=== PATIENT | female | born 1935 | race Caucasian/White ===

== ENCOUNTER → 2016-06-01 | Outpatient (CLI) | payer MEDICARE, OTHER ==
[~2016-06-01] MED LIST: ADVAIR 250-501 EACH IH; ALBUTEROL17 GM INH; AMITRYPTYLINE PO; AUGMENTIN875 M1 PO; BENTYL10 M1 PO; CALCIUM + D 6001 TA1 PO; CALCIUM CITRATE1 T12 PO; CARAFATE1 G PO; CARDIZEM30 M1 PO; CORGARD PO; CORGARD40 MG PO; COUMADIN PO; COUMADIN1 MG PO; COUMADIN2.5 MG PO; COUMADIN5 MG PO; CRESTOR PO; CRESTOR10 MG PO; CVS PHARMACY; DICYCLOMINE HCL20 MG PO; FOLIC ACID1 MG PO; HYDROCODON-ACE1 EAC5 PO; IMODIUM2 MG PO; IPRATR-ALBUTEROL3 ML NEB; LISINOPRIL2.5 MG PO; LORCET 10/650 T1 TAB PO; MECLIZINE HCL12.5 M2 PO; METFORMIN HCL500 M1 PO; METHOTREXATE2.5 MG PO; MIDODRINE HCL2.5 MG PO; MIRALAX17 G2 PO; MULTI-VITAMIN1 EAC1 PO; MULTIVITAMINS1 EAC3 PO; MYRBETRIQ25 MG PO; NEURONTIN PO; NEURONTIN600 MG PO; NORCO 10-325 TA1 TAB PO; NORCO 10/3251 TAB PO; OS-CAL 500 + D500 MG PO; PATIENT'S PHARMACY; PHAZYME; PHAZYME PO; PREDNISONE1 MG; PREDNISONE1 MG PO; PREDNISONE10 MG PO; PROTONIX PO; REMERON15 MG PO; SECURA PROTECTI50 GM TOP; SINGULAIR PO; SPIRIVA18 MCG INH; SYMBICORT 160/4.6 GM INH; VIT E PO; ZOCOR PO; ZOCOR20 MG PO; ZOFRAN PO; ZOLOFT PO; ZOVIRAX800 MG PO; ZYRTEC PO
--- NOTE | ~2016-06-01 | CT107 ---
STS. [facility] A Service of [facility] RADIOLOGY TEXT RESULTS PATIENT: KAELA BALDERRAMA LOCATION: [facility] : 34 UNIT #: [id number] AGE: [address]: Lucho Min PA-C SEX: F ORDER DR: [id number] [address] [address] [id number] MR#: [id number] Acc #: [id number] NAME: KAELA BALDERRAMA : 1935 SEX: F STUDY DATE/TIME: 06/01/2016 15:21 UNIT: [facility] ROOM: STUDY DESCRIPTION: CT Pelvis Wo Cont Attending Physician: Lucho Min P.A.-C. Referring Physician: Lucho Min P.A.-C. Ordering Physician: Lucho Min P.A.-C. Primary Care Physician: Shirlene Rahman A.P.R.N. MEDICAL IMAGING REPORT This report is preliminary unless electronic signature is present. EXAM CT pelvis without contrast, 06/01/2016 HISTORY 81-year-old female fell at home 3 days ago. Posterior right-sided pelvic pain x3 days. Concern for possible sacral alar fracture. COMPARISON CT abdomen and pelvis 01/24/2016 TECHNIQUE Thin section axial images performed through the pelvis. Multiplanar reconstructed images reviewed at a workstation. This CT exam was performed with one or more of the following radiation dose reduction techniques: automatic exposure control, adjustment of mA and/or kV according to patient size, and iterative reconstruction. FINDINGS Postsurgical change is noted in the noted in the lower lumbar spine from L3 to L5, posterior spinal fusion procedure. Intact instrumentation. Extensive bilateral L5-S1 facet arthropathy. Generalized osteopenia. Minimal arthritic changes of the SI joints. No evidence of an occult pelvic fracture. In particular the sacral ala appear intact without evidence of a stress or insufficiency fracture. Hip joints demonstrate some arthritic changes within both hips, right greater than left with asymmetric joint space loss in the right hip. There is a small right hip effusion. Large amount of colonic stool may indicate constipation. There is a left lower quadrant ostomy site with a peristomal hernia containing small bowel loops and omentum. Extensive aortic and iliac atherosclerotic change is ST[facility]. [facility] A Service of [facility] RADIOLOGY TEXT RESULTS PATIENT: KAELA BALDERRAMA LOCATION: [facility] : 34 UNIT #: [id number] AGE: [address]: Lucho Min PA-C SEX: F ORDER DR: identified. Partially visualized is an infrarenal abdominal aortic aneurysm measuring 5.1 cm x 4.9 cm. This is not significantly changed when compared to the patient's prior CT of January 2016. Bladder unremarkable. Uterus absent. Multiple surgical clips are noted within the pelvis. Gluteal soft tissues demonstrates calcifications compatible with area of fat necrosis. Pelvic and proximal thigh musculature unremarkable. IMPRESSION 1. No CT findings to suggest an occult pelvic fracture. In particular no evidence of a sacral alar insufficiency fracture. 2. Extensive postsurgical changes lower lumbar spine with advanced bilateral L5-S1 facet arthropathy. 3. Osteoarthritic changes both hips right greater than left. 4. As stable 5.1 cm infrarenal abdominal aortic aneurysm, no change from January 2016. 5. Left lower quadrant ostomy with a peristomal hernia. 6. Moderate amount of colonic stool suggests constipation. Dictated by... Mookie Richmond M.D. THIS IS AN ELECTRONICALLY VERIFIED REPORT Mookie Richmond M.D. at 06/02/2016 5:10 PM OUMOU/valeria TD: 06/02/2016 04:25 JOB #: [id number] MEDICAL IMAGING REPORT
== END | disposition home or self-care (01) ==
LOC: SCT 15:16
DX: S32.9XXA Fracture of unspecified parts of lumbosacral spine and pelvis, initial encounter for closed fracture (principal); M46.97 Unspecified inflammatory spondylopathy, lumbosacral region; I71.4 Abdominal aortic aneurysm, without rupture; K46.9 Unspecified abdominal hernia without obstruction or gangrene; Z98.890 Other specified postprocedural states
CPT/HCPCS: 72192

== ENCOUNTER 2016-09-07 19:24 | Inpatient (IN) | payer MEDICARE, OTHER ==
--- NOTE | ~2016-09-07 | CO ---
Unit #: [id number] #: [id number] Patient: KAELA LAMAS [id number] [facility]. [place], [place] [address] [id number] I MR#: [id number] NAME: KAELA LAMAS ROOM: 302 Age: 81 Sex: F Admission Date: 09/09/2016 : 1935 Attending Physician: Keira Jones M.D. Primary Care Physician: Shirlene Rahman A.P.R.N. CONSULTATION REPORT HISTORY OF PRESENT ILLNESS Ms. Lamas is an 81-year-old white female, followed through Dr. Cardenas's office. We were asked to see for chronic respiratory failure. She apparently has a history of COPD, atrial fibrillation, rheumatoid arthritis and chronic osteoarthritis, gastroesophageal reflux, hypertension. She apparently felt weak and could not walk. She also had some abnormal labs and was sent to the emergency room. I think that she supposed to had a hemoglobin of just between 3 and 4. On arrival to the emergency room, her chest x-ray showed some cardiomegaly, no acute infiltrate mass or congestion. CT scan of the abdomen and pelvis revealed an abdominal aortic aneurysm, which had increased in size to 5.5 cm. There was also an area of abnormality could represent some leakage of the aneurysm, which was slightly increased from before. Final report is pending. Her BMP was remarkable for glucose of 166, sodium of 131, BNP of 525, normal TSH. PT/INR was 3.2, and now 2.2 this morning. White count was 4900, hematocrit was 31.4, and platelet count was normal. PAST MEDICAL HISTORY Atrial fibrillation, on anticoagulation with Coumadin; hyperlipidemia; chronic pain, rheumatoid/osteoarthritis; peripheral vascular disease; abdominal aortic aneurysm; hypertension; COPD; colon cancer, status post colostomy; GERD; and history of breast cancer. HOME MEDICATIONS Myrbetriq, amitriptyline, folic acid, hydrocodone, APAP, Protonix, prednisone, Coumadin, Crestor, Remeron, multivitamins, Coreg, and methotrexate. ALLERGIES Listed include propoxyphene, pentazocine, and gatifloxacin. SOCIAL HISTORY Lives at home with . Started smoking at age 20, currently denies smoking. No history of alcohol or drug abuse. PAST SURGICAL HISTORY History of colostomy, vascular surgery by Dr. Singh in [place], hysterectomy, cholecystectomy, bilateral knee replacements. REVIEW OF SYSTEMS No shortness of breath, cough, or purulent sputum. No chest pain. Otherwise negative other than in the HPI. PHYSICAL EXAMINATION Unit #: [id number] #: [id number] Patient: KAELA LAMAS GENERAL: White female, in no distress. VITAL SIGNS: Blood pressure is 116/59, pulse 82, respiratory rate 16, afebrile. HEENT: Normocephalic and atraumatic. Pupils are equal, round, and reactive. Sclerae nonicteric. Nasal passages patent. Posterior pharynx clear. Mucous membranes moist. NECK: Supple. Trachea midline. LUNGS: Reveal decreased breath sounds relatively clear, may be a few crackles in the bases. CARDIAC: Irregular rate and rhythm. Could not appreciate murmur, rub, or gallop. ABDOMEN: Nontender. Bowel sounds present. No hepatosplenomegaly. EXTREMITIES: Without clubbing, cyanosis, or edema. NEUROLOGIC: Awake and oriented x3. Cranial nerves grossly intact. Muscle strength symmetric bilaterally. Affect calm. DIAGNOSTIC STUDIES LABORATORY RESULTS: As noted. IMPRESSION 1. Orthostasis/weakness. 2. History of chronic obstructive pulmonary disease. Currently not on any medications. 3. Atrial fibrillation. 4. Rheumatoid and osteoarthritis with chronic pain. RECOMMENDATIONS Currently, her oxygen saturations are normal both at rest and with sleep. Currently, no indication for home oxygen. She does not admit to any shortness of breath. I do not know the severity of underlying lung disease, but she is currently asymptomatic and has stopped all medications. We can obtain some outpatient pulmonary function test to determine severity of the lung disease and add medications as needed, but right now she seems fairly asymptomatic from our standpoint. We will be happy to follow as an outpatient if needed. Dictated by... Geoffrey England M.D. CHIDI/nhan TD: 09/09/2016 22:32 JOB #: [id number] CONSULTATION REPORT Page 1 of 1 X Geoffrey England MD CONSULTATION REPORT
--- NOTE | ~2016-09-07 | HP ---
Unit #: [id number] #: [id number] Patient: KAELA LAMAS [id number] [facility] [place], [place] [address] [id number] I MR#: [id number] NAME: KAELA LAMAS ROOM: 302 Age: 81 Sex: F Admission Date: 09/07/2016 : 1935 Attending Physician: Keira Jones M.D. Primary Care Physician: Shirlene Rahman A.P.R.N. HISTORY AND PHYSICAL ADMISSION DIAGNOSES 1. Questionable severe anemia. 2. Shortness of air, dyspnea. 3. History of chronic respiratory failure. 4. History of paroxysmal atrial fibrillation. 5. History of peripheral vascular disease. 6. History of chronic pain. 7. Dyslipidemia. 8. History of colon cancer status post resection with colostomy. 9. History of breast cancer. 10. History of rheumatoid arthritis. 11. Elevated INR. 12. UTI. HISTORY OF PRESENT ILLNESS Ms. Lamas is an 81-year-old female, a patient of Dr. Cardenas, who lives at home with her and is followed by [facility]. Apparently she had labs drawn on the regular followup at home and later was informed that her hemoglobin was 6.3 and needed to come to the emergency room. She was brought to the emergency room with complaints of shortness of air and dyspnea. She does have a history of chronic respiratory failure. Initial evaluation in the ER found her with hemoglobin of 10. This morning her hemoglobin is 9. She looks pale, but the patient and her , who is at the bedside, deny any bloody stools, The patient does have a colostomy secondary to history of colon cancer status post resection with colostomy. She also denies any bloody vomitus. She is on chronic anticoagulation secondary to paroxysmal atrial fibrillation, and her INR was at 3.2. Coumadin has been on hold. She, otherwise, denies any chest pain. Denies any headache, dizziness, syncope. Denies any fever, chills, nausea, vomiting, diarrhea or abdominal pain. Denies any cough. REVIEW OF SYSTEMS A 12-point review of systems on this patient is basically negative except as above. PAST MEDICAL HISTORY Significant for history of paroxysmal atrial fibrillation, rheumatoid arthritis, chronic respiratory failure, history of colon cancer and history of breast cancer, history of dyslipidemia, history of peripheral vascular disease. Unit #: [id number] #: [id number] Patient: KAELA LAMAS PAST SURGICAL HISTORY Significant for left lower extremity stent secondary to peripheral vascular disease, colectomy with colostomy secondary to colon cancer, cholecystectomy, hysterectomy, knee replacement and breast lumpectomy. HOME MEDICATIONS Myrbetriq, amitriptyline, folic acid, [place], Protonix, prednisone, Coumadin, Crestor, Remeron, multivitamin, [place] and methotrexate. ALLERGIES [place], propoxyphene, gatifloxacin. SOCIAL HISTORY No current history of tobacco, alcohol or illicit drugs. FAMILY HISTORY Family history is unremarkable. PHYSICAL EXAMINATION GENERAL: The patient is an 81-year-old female who appears pale. No acute distress. VITAL SIGNS: BP 146/78, heart rate 95, respirations 16, temperature 98.4, satting 95%. HEENT: Head is atraumatic. Pupils are equal, round and reactive to light and accommodation. Extraocular muscles are intact. Oropharynx is clear. NECK: Neck is supple. No masses. No JVD. No bruit. RESPIRATORY: Chest is diminished bilaterally. CARDIOVASCULAR: S1, S2. No murmurs. ABDOMEN: Abdomen is soft, nontender, nondistended. EXTREMITIES: Lower extremities have no cyanosis, clubbing or edema. NEUROLOGIC: Without any focal deficits. She is alert and awake. Appears slightly confused. tells me that is secondary to her decreased hearing. Otherwise, moves all 4 extremities. No facial asymmetry. DIAGNOSTIC STUDIES LABORATORY: Chemistry significant for blood glucose of 124, alkaline phosphatase 292. PT is 34.8, INR 3.2. H and H this morning 9.6 and 30.5, white count 4.8. UA - Positive leukocyte esterase, positive nitrites. ASSESSMENT AND PLAN 1. Shortness of air and dyspnea with history of chronic respiratory failure. Could not see any chest x-ray done in the ER, so we will start with chest x-ray. Check BNP. Check two-D echo. Pulmonary and cardiology evaluation. Patient does have a history of paroxysmal atrial fibrillation and peripheral vascular disease. She needs to be ruled out for coronary artery disease and congestive heart failure. Again, we will check BNP, chest x-ray, pulmonary and cardiology evaluations. DuoNeb q.4 hours. 2. Questionable severe anemia with reports of hemoglobin at 6.3. Questionable lab error even though the patient does look pale and her INR is 3.2. Hemoglobin here was 10 and 9 respectively. Will check the stool for occult blood. Consider CT abdomen and pelvis, rule out retroperitoneal bleeding. 3. UTI. Started on Rocephin. Follow up on urine culture. 4. History of rheumatoid arthritis. On methotrexate and prednisone. 5. History of breast cancer status post lumpectomy. 6. History of colon cancer status post colectomy with colostomy. Unit #: [id number] #: [id number] Patient: KAELA LAMAS 7. History of peripheral vascular disease status post left lower extremity stent in the past. 8. GI and DVT prophylaxis. Continue PPI. No need for further anticoagulation at this point. 9. Elevated INR. Hold Coumadin. Followup on INR in the morning. Monitor H and H. Dictated by Kenneth Lowery/jean paul TD: 09/09/2016 08:53 JOB #: [id number] HISTORY AND PHYSICAL Page 1 of 1 X Kishan Tracey MD X HISTORY AND PHYSICAL
--- NOTE | ~2016-09-07 | EKG ---
PATIENT: KAELA BALDERRAMA UNIT #: [id number] Ventricular Rate: 105 BPM Atrial Rate: 80 BPM QRS Duration: 84 ms Q-T Interval: 322 ms QTC Calculation(Bezet): 425 ms Calculated R [place]: -16 degrees Calculated T [place]: 13 degrees Diagnosis Line: Atrial fibrillation with rapid ventricular Diagnosis Line: response Diagnosis Line: Poor R wave progression questionable lead position Diagnosis Line: or body habitus Diagnosis Line: Abnormal ECG Diagnosis Line: When compared with ECG of 24-JAN-2016 12:25, Diagnosis Line: No significant change was found Diagnosis Line: Confirmed by LUDMILA LAZO MD ([id number]) on Diagnosis Line: 09/09/2016 2:48:57 PM INTERPRETING MD: DENIZ
--- NOTE | ~2016-09-07 | A ---
[facility] DATE: 09/08/16 Patient: KAELA BALDERRAMA Physician: AMISHA Address: [address] Room/Bed: [address] [place] [address], Zip: [place] [address] Admit Date: 09/07/16 Date of : [birth year] Height: 5 7.5 Weight: 127 58 NUTRITIONAL ASSESSMENT: REASON: 2 nutritional risk points re: 5# weight loss 81 y/o female admitted for orthostatic hypotension PMH: Afib, HLD, PVD, T2DM, arthritis, colon cancer, GERD, breast cancer Anthropometrics: ht: 5'7" wt: 127# (57 kg) BMI: 19 Labs: Na+ 131, Cl- 97, Glu 124, Ca++ 8.1, Alb 2.2 Meds: lipitor, norco, NaCl, remeron, nadolol, prednisone, protonix IV, folic acid I/O & Bowel function: 720/1. BM 09/07, colostomy bag. Skin Integrity: scattered bruising- BUE; varicose veins; scar- abd, back, bilat knees Diet: regular Assessment: Chart reviewed, events noted. Pt seen for 2 nutritional risk points re: 5# weight loss. RD international representative spoke to pt at bedside. Pt reports having a 5-10# weight loss over an unknown amount of time. Pt could not provide a UBW. Pt reports having a poor appetite and eating a few small meals throughout the day when at home. She reports usually eating coffee and toast for breakfast, cheese and crackers for lunch, and fish or chicken for dinner. RD international representative encouraged adequate PO intake and offered to order supplements to increase protein-energy intake. Pt agreed to chocolate ensure and chocolate magic cup. RD will continue to follow. Dx: Unintentional weight loss r/t poor appetite AEB pt reported 5-10# weight loss over unknown amount of time. Intervention: 1. Regular diet 2. ensure + magic cup Monitoring, Evaluation and Goals: 1. Weight; prevent further unintentional weight loss, promote gradual weight gain 2. PO intake; consume/tolerate >50% of each meal Recommendations: 1. Ensure chocolate BID + chocolate magic cup with dinner. 2. Encourage adequate PO intake. [facility] DATE: 09/08/16 Patient: KAELA BALDERRAMA Physician: AMISHA Address: [address] Room/Bed: [address] [place] [address], Zip: [place] [address] Admit Date: 09/07/16 Date of : [birth year] Height: 5 7.5 Weight: [address] will f/u per protocol as pt is at mild nutritional risk. Respectfully, JUAN CALIXTO fall intern [employer] and Nutrition[employer] Services [facility] cc: client file
--- NOTE | ~2016-09-07 | EKG ---
PATIENT: KAELA BALDERRAMA UNIT #: [id number] Ventricular Rate: 91 BPM Atrial Rate: 81 BPM QRS Duration: 90 ms Q-T Interval: 390 ms QTC Calculation(Bezet): 479 ms Calculated R [place]: -10 degrees Calculated T [place]: 35 degrees Diagnosis Line: Atrial fibrillation Diagnosis Line: Poor R wave progression questionable lead position Diagnosis Line: or body habitus Diagnosis Line: Borderline ECG Diagnosis Line: When compared with ECG of 07-SEP-2016 21:42, Diagnosis Line: (unconfirmed) Diagnosis Line: QT has lengthened Diagnosis Line: Confirmed by LUDMILA LAZO MD ([id number]) on Diagnosis Line: 09/09/2016 3:07:03 PM INTERPRETING MD: DENIZ
--- NOTE | ~2016-09-07 | CR63 ---
[facility] A Service of [facility] & [facility] RADIOLOGY TEXT RESULTS PATIENT: KAELA BALDERRAMA LOCATION: [facility] 302-01 : 34 UNIT #: [id number] AGE: [address]: Keira Jones MD SEX: F ORDER DR: [id number] [facility] [address] [facility] [address]. [place], [place] [address] [id number] I MR#: [id number] #: [id number] NAME: KAELA BALDERRAMA : 1935 SEX: F STUDY DATE/TIME: 09/08/2016 21:35 [facility]: [facility] STUDY DESCRIPTION: CR Chest 2 View Attending Physician: Keira Jones M.D. Ordering Physician: Kishan Tracey M.D. Primary Care Physician: Shirlene Rahman A.P.R.N. MEDICAL IMAGING REPORT This report is preliminary unless electronic signature is present EXAM PA and lateral chest HISTORY Chest pain for 1 week. FINDINGS Two views of the chest demonstrate mild cardiac enlargement. Normal pulmonary vascularity. Mild left thoracolumbar junction curve. No airspace infiltrates or effusions. Mild pleural thickening in the lung apices. Mild hypertrophic spurring mid and lower thoracic spine. IMPRESSION No acute findings. Mild cardiac enlargement. Dictated by... Weston Ramirez M.D. THIS IS AN ELECTRONICALLY VERIFIED REPORT Weston Ramirez M.D. at 09/16/2016 10:36 PM RAYMOND/santa TD: 09/09/2016 09:02 JOB #: [id number] MEDICAL IMAGING REPORT Page 1 of 1 COPY
--- NOTE | ~2016-09-07 | CT4 ---
[facility] A Service of [facility] & [facility] RADIOLOGY TEXT RESULTS PATIENT: KAELA BALDERRAMA LOCATION: [facility] 302-01 : 34 UNIT #: [id number] AGE: [address]: Keira Jones MD SEX: F ORDER DR: [id number] [facility] [address] [place], [place] [address] [id number] I MR#: [id number] Acc #: [id number] NAME: KAELA BALDERRAMA : 1935 SEX: F STUDY DATE/TIME: 09/08/2016 21:55 UNIT: [facility] PCU ROOM: 302 STUDY DESCRIPTION: CT Abd and Pelv Wo Cont Attending Physician: Keira Jones M.D. Ordering Physician: Kishan Tracey M.D. Primary Care Physician: Shirlene Rahman A.P.R.N. MEDICAL IMAGING REPORT This report is preliminary unless electronic signature is present EXAM CT abdomen and pelvis without contrast 09/08/2016 HISTORY 81-year-old female with decreasing hemoglobin today. Right-sided abdominal pain for 4 days. Order requests evaluation for possible retroperitoneal hemorrhage. COMPARISON CT abdomen and pelvis 01/24/2016. CT pelvis 06/01/2016. TECHNIQUE Helical scan performed through the abdomen and pelvis without IV contrast. Coronal and sagittal reformatted images. This CT exam was performed with one or more of the following radiation dose reduction techniques: Automatic exposure control, adjustment of mA and/or kV according to patient size, and iterative reconstruction. FINDINGS Visualized lung bases are unremarkable. Cardiomegaly is again noted. The liver, spleen, pancreas, and both adrenal glands are grossly unremarkable. Left renal cyst again noted. Right kidney grossly unremarkable. There is a large infrarenal abdominal aortic aneurysm measuring 5.5 x 5.8 cm in maximal diameter. This is slightly increased from the prior CT pelvis where it measured 5.1 x 4.9 cm. There is a somewhat ill-defined and indeterminate collection extending to the right of the abdominal aorta just inferior to the right renal artery. This measures approximately 4.5 x 3.1 cm in size and appears larger when compared to the prior studies from 01/24/2016. A contained rupture is not excluded. There is no evidence of significant retroperitoneal hemorrhage. Small bowel is grossly unremarkable. Colon is unremarkable. Moderate stool burden. Left lower quadrant ostomy. No free fluid or free air. [facility] A Service of [facility] RADIOLOGY TEXT RESULTS PATIENT: KAELA BALDRERAMA LOCATION: [facility] 302-01 : 34 UNIT #: [id number] AGE: [address]: Keira Jones MD SEX: F ORDER DR: Urinary bladder is unremarkable. Uterus appears surgically absent. No free pelvic fluid. No acute bony abnormality. Postsurgical changes of the lumbar spine. IMPRESSION 1. Large abdominal aortic aneurysm measuring 5.5 x 5.8 cm on today's exam. This has enlarged from the previous study of 01/24/2016 where it measured 5.2 x 5 cm. There is also a somewhat ill-defined collection projecting laterally to the right of the abdominal aorta just inferior to the right renal artery. This measures 4.5 x 3.1 cm on today's examination and appears larger when compared to the prior study of 01/24/2016. This is nonspecific, but a contained abdominal aortic rupture is not excluded. Consider further characterization with conventional angiography or contrast enhanced CT of the abdomen and pelvis. 2. No evidence of a significant retroperitoneal hemorrhage. No other free fluid seen in the abdomen or pelvis. 3. Cardiomegaly. 4. Moderate stool burden. Dictated by... Law Mistry M.D. THIS IS AN ELECTRONICALLY VERIFIED REPORT Law Mistry M.D. at 09/09/2016 3:08 PM MAHAD/aylin TD: 09/09/2016 09:30 JOB #: [id number] MEDICAL IMAGING REPORT Page 1 of 1 COPY
--- NOTE | ~2016-09-07 | CO ---
Unit #: [id number] #: [id number] Patient: KAELA BALDERRAMA [id number] [address] [place], [place] [address] [id number] MR#: [id number] NAME: KAELA BALDERRAMA ROOM: 302 Age: 81 Sex: F Admission Date: 09/09/2016 : 1935 Attending Physician: Keira Jones M.D. Primary Care Physician: Shirlene Rahman A.P.R.N. CONSULTATION REPORT REASON FOR CONSULTATION Hyponatremia. HISTORY OF PRESENT ILLNESS The patient is an 81-year-old white female with history of atrial fibrillation, congestive heart failure, and hypertension who was admitted for weakness and possible anemia, found to have atrial fibrillation and some dizziness. Cardiology and Pulmonary have been consulted. The patient has been given diuretics during this admission and her sodium has gone from 133 to 129. Her potassium and magnesium are low as well. Currently, she is without complaints. She is eating and drinking. She denies any nausea, vomiting, or diarrhea. PAST MEDICAL HISTORY Significant for atrial fibrillation, hypertension, COPD, history of breast cancer and colon cancer in the past. SOCIAL HISTORY No tobacco. No alcohol. FAMILY HISTORY Noncontributory. CURRENT MEDICATIONS Include potassium chloride, magnesium sulfate, Macrobid 100 b.i.d., Protonix, Coumadin, Lipitor, [place], Remeron, amitriptyline, Lipitor, nadolol, and prednisone. REVIEW OF SYSTEMS A 12-point review of systems completed and currently negative for everything. PHYSICAL EXAMINATION VITAL SIGNS: Blood pressure is 141/97, heart rate 96, respirations 18, temperature is 98.1. GENERAL: She is a well-nourished white female. HEENT: Shows no JVD. No LAD. CARDIOVASCULAR: Heart rate was irregular. No murmurs, rubs, or gallops. LUNGS: Clear to auscultation bilaterally. ABDOMEN: Soft, nontender, nondistended. DIAGNOSTIC STUDIES LABORATORY RESULTS: Show sodium 129, potassium 3.2, chloride 96, bicarb 25, BUN 5, creatinine 0.4, calcium 8.4, magnesium 1.2. Unit #: [id number] #: [id number] Patient: KAELA BALDERRAMA ASSESSMENT AND PLAN 1. Hyponatremia possibly secondary to medications either Lasix or SIADH secondary to Remeron although. We will check urine studies. Continue current fluid restriction and monitor. 2. Hypokalemia, replacing with potassium chloride. We will repeat labs. 3. Hypomagnesemia, replacing. We will repeat. 4. Urinary tract infection, currently on Macrobid. 5. Atrial fibrillation. Heart rate currently irregular, but rate controlled. Cardiology is following. Dictated by... Kenneth Morgan/nhan TD: 09/15/2016 04:00 JOB #: [id number] CONSULTATION REPORT Page 1 of 1 X Ashley Donato MD X CONSULTATION REPORT
--- NOTE | ~2016-09-07 | CO ---
Unit #: [id number] #: [id number] Patient: KAELA LAMAS [id number] [facility] [address] [facility]. [place], [place] [address] [id number] I MR#: [id number] NAME: KAELA LAMAS ROOM: 302 Age: 81 Sex: F Admission Date: 09/09/2016 : 1935 Attending Physician: Keira Jones M.D. Primary Care Physician: Shirlene Rahman A.P.R.N. CONSULTATION REPORT REASON FOR CONSULTATION REQUEST Atrial fibrillation. HISTORY OF PRESENT ILLNESS Ms. Lamas is a pleasant 81-year-old female, seen in room 302 at [facility]. She is a patient of Dr. Tracey, Dr. England, and Dr. Roosevelt Hurley at [place]. She has a history of hypertension, peripheral vascular disease, and paroxysmal atrial fibrillation. She underwent stenting of her left leg in 2013 approximately, and she stopped smoking tobacco after greater than 50 years in 06/2016. She is admitted after her home health nurse found anemia. Blood was drawn yesterday, and she was called last evening and told to go to the emergency room. Upon presentation here, her hemoglobin is 9.6, white blood count 4.8, and platelet count 425,000. She has had edema, which has been present over the past several weeks, but is slightly resolved. She denies chest pain, but does note dizziness. She has shortness of breath, but has a history of COPD. The atrial fibrillation has been noted to be at a rate of approximately 90 to 100. There are no acute ST changes and there is no chest pain. I reviewed the ECG. PAST MEDICAL HISTORY 1. COPD. 2. Peripheral vascular disease, left leg stent, 2013. 3. Tobacco abuse until 06/2016. 4. Paroxysmal atrial fibrillation. 5. Probable obstructive sleep apnea. She sees Dr. England. She underwent a sleep study and was told to return for another test. She refused. 6. Colon cancer. 7. Breast cancer. 8. Arthritis. 9. Abdominal aortic aneurysm. PAST SURGICAL HISTORY Cholecystectomy, hysterectomy, knee replacement, and breast lumpectomy. ALLERGIES Pentazocine lactate, , propoxyphene, and gatifloxacin. SOCIAL HISTORY Lives with her . Stopped smoking in 06/2016. Denies alcohol use. Unit #: [id number] #: [id number] Patient: KAELA LAMAS FAMILY HISTORY Negative for premature atherosclerotic disease, but really nonsignificant at this point. REVIEW OF SYSTEMS As per history of present illness. Otherwise, as stated below. GENERAL: No recent fever or chills. No recent weight change. ENDOCRINE: Negative for thyroid disease. HEENT: No auditory or visual disturbances. GASTROINTESTINAL: No melena, no hematochezia. RESPIRATORY: Dyspnea on exertion. CARDIOVASCULAR: Vide supra. GENITOURINARY: No dysuria. No back pain suggestive of nephrolithiasis. NEUROLOGIC: Dizziness with standing. PSYCHOLOGICAL: No depression. EXTREMITIES: Edema recently. MEDICATIONS Myrbetriq, amitriptyline, folic acid, hydrocodone, Coumadin, prednisone, Crestor, Remeron, multivitamins, [place], methotrexate, and Protonix. Doses to follow. PHYSICAL EXAMINATION GENERAL: Pleasant, alert, in no acute distress, hard of hearing. VITAL SIGNS: Blood pressure 152/90; heart rate has been ranging between 90 and 120, but closer to 90 currently; respiratory rate is 15, unlabored. SKIN: Warm and dry. No xanthelasma. MUSCULOSKELETAL: No missing digits. Moves easily for evaluation. NEUROLOGICAL: Appropriate mood and affect. Alert and oriented x3. HEENT: Pupils equal, round and reactive. No oral cyanosis. No icterus. NECK: Carotids clear to auscultation with no carotid bruits. Normal carotid upstroke bilaterally. Thyroid is normal in size and texture without masses or tenderness. CHEST: Distant lung sounds, with inspiratory wheezes very few. CARDIAC: Irregularly irregular rhythm. No significant murmurs heard. ABDOMEN: No hepatosplenomegaly, masses or tenderness. Normal bowel sounds. No abdominal bruits heard. EXTREMITIES: No distal pulses palpated. Very tender legs, 1+ edema bilaterally. DIAGNOSTIC STUDIES CARDIOVASCULAR STUDIES: ECG is currently pending. LABORATORY RESULTS: Hemoglobin 9.6, white blood count 4.8, and platelet count 425,000. Creatinine is 0.7, potassium 4.2, and magnesium 1.9 in 2006. Troponins are pending. TSH is pending. IMPRESSION 1. Atrial fibrillation with rapid ventricular response. 2. Hypertension. 3. Possible obstructive sleep apnea. 4. Anemia. 5. Chronic Coumadin for atrial fibrillation. 6. Chronic obstructive pulmonary disease. 7. Peripheral vascular disease, left leg stent. 8. Tobacco abuse until 06/2016. 9. Edema, possible RV failure. 10. Dyslipidemia, treated. Unit #: [id number] #: [id number] Patient: KAELA LAMAS RECOMMENDATIONS 1. We will add diltiazem p.o. for control of the atrial fibrillation rate, and to treat her blood pressure. 2. I agree with the echo and chest x-ray, as well as troponin. 3. We will check a TSH. 4. She probably needs treatment for sleep apnea, which Dr. England had recommended previously. 5. Coumadin being held because of anemia and increased INR, with which I agree. 6. We will diurese if BNP is high, especially with the mild edema. Thank you very much for this consultation. We will follow with you. Dictated by... Nicolas Golden M.D. ANA/nhan TD: 09/09/2016 15:20 JOB #: [id number] CONSULTATION REPORT Page 1 of 1 X Nicolas Golden MD X CONSULTATION REPORT
--- NOTE | ~2016-09-07 | DS ---
Unit #: [id number] #: [id number] Patient: JULIANA LAMAS [id number] [address] [place], [place] [address] [id number] MR#: [id number] NAME: JULIANA LAMAS ROOM: 302 Age: 81 Sex: F Admission Date: 09/09/2016 : 1935 Discharge Date: 09/15/2016 Attending Physician: Keira Jones M.D. Primary Care Physician: Liss SorensonRErin DISCHARGE SUMMARY FINAL DIAGNOSES 1. Postural hypotension. 2. Dizziness. 3. Chronic obstructive pulmonary disease. 4. Permanent atrial fibrillation. 5. Anticoagulation therapy. 6. Left ventricular ejection fraction of 55%. 7. Small AFB. 8. Hypertension. 9. Hyperlipidemia. 10. Diabetes mellitus type 2. 11. Hyponatremia. 12. Peripheral vascular disease. Left leg stent. 13. Tobacco abuse. 14. Moderate to severe tricuspid regurgitation, moderate mitral regurgitation. 15. Hypokalemia and hypomagnesemia which is improved. 16. Urinary tract infection. 17. Chronic obstructive pulmonary disease. DISCHARGE MEDICATIONS 1. Folic acid 1 mg p.o. daily. 2. Macrobid 100 mg p.o. b.i.d. for 3 days. 3. Protonix 40 mg daily. 4. [place] 10/325 mg 1 tablet q.i.d. p.r.n. 5. Multivitamin daily. 6. Crestor 20 mg daily. 7. Myrbetriq 25 mg at bedtime. 8. Nadolol 40 mg b.i.d. 9. Cardizem 30 mg q.8 h. 10. Meclizine 12.5 mg p.r.n. dizziness. 11. Methotrexate continue home dose. 12. Remeron 50 mg at bedtime. 13. Amitriptyline 20 mg at bedtime. 14. Coumadin 2.5 mg daily. 15. Prednisone 1 mg daily. 16. Mini-Neb treatment q.4 h. p.r.n. DIAGNOSTIC DATA LABORATORY: TSH 2.60, BNP 299, sodium 131, potassium 4.5, chloride 96, BUN 7, creatinine 0.5, magnesium 1.7, PT/INR 32.0 and 2.9. Blood in the stool is negative. Urine culture grew enterococcus species more than 100,000 colonies. Unit #: [id number] #: [id number] Patient: JULIANA LAMAS IMAGING: CT scan of the abdomen and pelvis showed large abdominal aortic aneurysm measuring 5.5 x 5.8 cm. The patient will need vascular surgeon as an outpatient. There is no significant evidence of retroperitoneal hemorrhage. CONSULTANTS Dr. Nicolas Golden from cardiology service. Dr. Rodney England from pulmonary service. Dr. Donato from renal service. HOSPITAL COURSE Mr. Juliana Lamas is an 81-year-old female who was admitted to the hospital by my colleague, Dr. Tracey, with questionable hemoglobin of 6.3. When she came to the emergency room her hemoglobin was 10. She started complaining of dizziness and could not stand up. The patient was found to be hypotensive. She was also having shortness of breath and dyspnea. The patient was admitted to the telemetry unit. Dr. Rodney England was consulted. Her medications were adjusted. The patient's oxygen saturation was normal at rest and at sleep. She received a one-day dose of steroids which was discontinued. Dr. Nicolas Golden was consulted for atrial fibrillation. The patient's rapid ventricular rate has improved. She has also been started on calcium channel ham[place]. The patient is on anticoagulation therapy and pro time is in therapeutic range. Acute myocardial infarction was ruled out. Dr. Donato was consulted for hyponatremia, which has improved. The patient's hypokalemia has also improved. The patient was found to have urinary tract infection. She is on Macrobid and maybe that can be continued for three more days. PHYSICAL EXAMINATION VITALS: On discharge, blood pressure 103/63, respiratory rate 16, pulse 93, temperature 98.3, oxygen saturation 98%. HEENT: Head is normocephalic. CHEST: Fair air entry. HEART: S1 and S2 positive. Irregular rhythm. ABDOMEN: Soft. DISCHARGE INSTRUCTIONS 1. The patient is being discharged to rehab. 2. Medication is per medication reconciliation. 3. Physical therapy and occupational therapy at rehab. 4. CBC and BMP in two to three days. 5. The patient has abdominal aortic aneurysm which measures 5.5 x 5.8 cm. The patient will need a vascular surgeon appointment as an outpatient. Dictated by... Keira Jones M.D. James TD: 09/15/2016 13:44 JOB #: [id number] Unit #: [id number] #: [id number] Patient: JULIANA LAMAS DISCHARGE SUMMARY Page 1 of 1 X Keira Jones MD X DISCHARGE SUMMARY
[~2016-09-07 19:24] MED LIST changes: -CARDIZEM30 M1 PO; -COUMADIN PO; -CRESTOR PO; -IPRATR-ALBUTEROL3 ML NEB; -MECLIZINE HCL12.5 M2 PO; -MIDODRINE HCL2.5 MG PO; -MULTIVITAMINS1 EAC3 PO; -MYRBETRIQ25 MG PO; -PATIENT'S PHARMACY; -REMERON15 MG PO; -SECURA PROTECTI50 GM TOP; -ZOFRAN PO
[2016-09-07] MEDS ORDERED: AMITRYPTYLINE PO (19:37)
[2016-09-07] MEDS ORDERED: MYRBETRIQ25 MG PO (19:37)
[2016-09-07] MEDS ORDERED: HYDROCODON-ACE1 EAC5 PO (19:38)
[2016-09-07] MEDS ORDERED: PROTONIX PO (19:38)
[2016-09-07] MEDS ORDERED: FOLIC ACID1 MG PO (19:38)
[2016-09-07] MEDS ORDERED: PREDNISONE1 MG PO (19:38)
[2016-09-07] MEDS ORDERED: CRESTOR10 MG PO (19:40)
[2016-09-07] MEDS ORDERED: COUMADIN PO (19:40)
[2016-09-07] MEDS ORDERED: MULTIVITAMINS1 EAC3 PO (19:41)
[2016-09-07] MEDS ORDERED: REMERON15 MG PO (19:41)
[2016-09-07] MEDS ORDERED: CORGARD40 MG PO (19:42)
[2016-09-07] MEDS ORDERED: METHOTREXATE2.5 MG PO (19:43)
[2016-09-07 21:32] LABS: BASOPHIL% 0.7 % (0-2.5); EOSINOPHIL# 0.1 X10e3 (0-0.7); EOSINOPHIL% 1.4 % (0.0-7.0); HEMATOCRIT 31.4 % (35.0-45.0); HEMOGLOBIN 10.1 gm/dL (12.0-16.0); LYMPHOCYTE# 0.4 X10e3 (1.0-3.5); LYMPHOCYTE% 7.5 % (17.0-45.0); MEAN CELL VOLUME 84.4 FL (83-96); MEAN CORPUSCULAR HEMOGLOBIN 27.2 PG (28-34); MEAN CORPUSCULAR HGB CONC 32.2 g/dL (30-36); MEAN PLATELET VOLUME 6.9 FL (6.5-11.5); MONOCYTE# 0.2 X10e3 (0-1.0); MONOCYTE% 3.3 % (3.0-12.0); NEUTROPHIL# 4.3 X10e3 (1.5-7.1); NEUTROPHIL% 87.1 % (40-75); PLATELET COUNT 597 X10e3 (140-420); RED BLOOD COUNT 3.72 X10e (3.90-5.30); RED CELL DISTRIBUTION WIDTH 27.4 % (11.0-15.5); WHITE BLOOD COUNT 4.9 X10e3 (4.0-10.5)
[2016-09-07 21:34] LABS: DIFF IND YES
[2016-09-07 21:50] LABS: INR 3.2; PARTIAL THROMBOPLASTIN TIME 43.2 SECONDS (23.5-31.3); PROTHROMBIN TIME (PATIENT) 34.8 SECONDS (10.0-11.7)
[2016-09-07 21:53] LABS: ALBUMIN SERUM 2.2 g/dL (3.5-5.0); BILIRUBIN, DIRECT 0.6 mg/dL (0.0-0.2); BILIRUBIN,INDIRECT 0.4 mg/dL (0.0-0.9); CALCIUM SERUM 8.8 mg/dL (8.4-10.2); CREATININE SERUM 0.8 mg/dL (0.6-1.4); GLOM FILT RATE Estimated 68.7 mL/min (>60); POTASSIUM 3.6 mmol/L (3.5-5.1); PROTEIN TOTAL SERUM 7.5 g/dL (6.0-8.3)
[2016-09-07 22:16] LABS: PLATELET ESTIMATE INCREASED (NORMAL); SMUDGE CELLS 9 /100
[2016-09-07 22:17] LABS: HYPOCHROMIA SL
[2016-09-08 07:06] LABS: HEMATOCRIT 30.5 % (35.0-45.0); HEMOGLOBIN 9.6 gm/dL (12.0-16.0); MEAN CELL VOLUME 85.9 FL (83-96); MEAN CORPUSCULAR HEMOGLOBIN 26.9 PG (28-34); MEAN CORPUSCULAR HGB CONC 31.4 g/dL (30-36); MEAN PLATELET VOLUME 7.6 FL (6.5-11.5); RED BLOOD COUNT 3.55 X10e (3.90-5.30); RED CELL DISTRIBUTION WIDTH 28.4 % (11.0-15.5); WHITE BLOOD COUNT 4.8 X10e3 (4.0-10.5)
[2016-09-08 07:37] LABS: BUN/CREATININE RATIO 12.85; CALCIUM SERUM 8.1 mg/dL (8.4-10.2); CREATININE SERUM 0.7 mg/dL (0.6-1.4); GLOM FILT RATE Estimated 80.7 mL/min (>60); POTASSIUM 4.2 mmol/L (3.5-5.1)
[2016-09-08 09:30] LABS: URINE SOURCE CLEAN CATCH
[2016-09-08 09:59] LABS: URINE APPEARANCE CLEAR; URINE BILIRUBIN NEG (NEG); URINE BLOOD NEG (NEG); URINE COLOR YELLOW; URINE GLUCOSE NEG (NEG); URINE KETONE NEG (NEG); URINE LEUKOCYTE ESTERASE 2+ (NEG); URINE NITRATE POS (NEG); URINE PH 8.5 (5-8); URINE PROTEIN 1+ (NEG); URINE SPECIFIC GRAVITY 1.016 (1.003-1.035)
[2016-09-08 10:02] LABS: CULTURE INDICATED? YES; URBCS1 AUWI 0-2 /[HPF] (0-2); URINE BACTERIA AUWI 4+ (NEGATIVE); URINE SQUAMOUS EPITHELIAL CELL NONE SEEN /[HPF]; UWBCS1 AUWI 50-100 (0-5)
[2016-09-08 21:30] LABS: BASOPHIL% 0.6 % (0-2.5); DIFF IND NO; EOSINOPHIL# 0.1 X10e3 (0-0.7); EOSINOPHIL% 1.9 % (0.0-7.0); HEMATOCRIT 29.7 % (35.0-45.0); HEMOGLOBIN 9.3 gm/dL (12.0-16.0); LYMPHOCYTE# 0.4 X10e3 (1.0-3.5); LYMPHOCYTE% 7.7 % (17.0-45.0); MEAN CELL VOLUME 85.5 FL (83-96); MEAN CORPUSCULAR HEMOGLOBIN 26.7 PG (28-34); MEAN CORPUSCULAR HGB CONC 31.3 g/dL (30-36); MEAN PLATELET VOLUME 6.5 FL (6.5-11.5); MONOCYTE# 0.5 X10e3 (0-1.0); MONOCYTE% 10.4 % (3.0-12.0); NEUTROPHIL# 3.6 X10e3 (1.5-7.1); NEUTROPHIL% 79.4 % (40-75); PLATELET COUNT 470 X10e3 (140-420); RED BLOOD COUNT 3.48 X10e (3.90-5.30); WHITE BLOOD COUNT 4.6 X10e3 (4.0-10.5)
[2016-09-08 21:46] LABS: INR 2.2; PROTHROMBIN TIME (PATIENT) 23.6 SECONDS (10.0-11.7)
[2016-09-08 21:47] LABS: CREATININE SERUM 0.7 mg/dL (0.6-1.4); GLOM FILT RATE Estimated 80.7 mL/min (>60); POTASSIUM 3.9 mmol/L (3.5-5.1)
[2016-09-09 06:36] LABS: CK TOTAL 11 IU/L (26-140)
[2016-09-09 07:24] LABS: CHOLESTEROL 69 mg/dL (0-200); HDL CHOLESTEROL 16 mg/dL (35-95); LDL CHOLESTEROL 43 mg/dL (-130); LDL/HDL RATIO 3 RATIO (0-4); TRIGLYCERIDES 49 mg/dL (10-160)
[2016-09-09 18:08] LABS: BASOPHIL% 0.7 % (0-2.5); EOSINOPHIL# 0.1 X10e3 (0-0.7); EOSINOPHIL% 1.1 % (0.0-7.0); HEMATOCRIT 28.5 % (35.0-45.0); LYMPHOCYTE# 0.4 X10e3 (1.0-3.5); LYMPHOCYTE% 7.3 % (17.0-45.0); MEAN CELL VOLUME 85.6 FL (83-96); MEAN CORPUSCULAR HGB CONC 31.5 g/dL (30-36); MEAN PLATELET VOLUME 6.6 FL (6.5-11.5); MONOCYTE# 0.9 X10e3 (0-1.0); NEUTROPHIL# 4.2 X10e3 (1.5-7.1); NEUTROPHIL% 74.9 % (40-75); PLATELET COUNT 437 X10e3 (140-420); RED BLOOD COUNT 3.32 X10e (3.90-5.30); WHITE BLOOD COUNT 5.6 X10e3 (4.0-10.5)
[2016-09-09 18:10] LABS: DIFF IND NO
[2016-09-09 18:24] LABS: INR 2.1; PROTHROMBIN TIME (PATIENT) 23.1 SECONDS (10.0-11.7)
[2016-09-09 18:27] LABS: BUN/CREATININE RATIO 8.57; CREATININE SERUM 0.7 mg/dL (0.6-1.4); GLOM FILT RATE Estimated 80.7 mL/min (>60); POTASSIUM 3.3 mmol/L (3.5-5.1)
[2016-09-10 07:40] LABS: INR 2.1; PROTHROMBIN TIME (PATIENT) 22.8 SECONDS (10.0-11.7)
[2016-09-10 07:46] LABS: BUN/CREATININE RATIO 8.33; CALCIUM SERUM 8.5 mg/dL (8.4-10.2); CREATININE SERUM 0.6 mg/dL (0.6-1.4); GLOM FILT RATE Estimated 84.9 mL/min (>60); POTASSIUM 4.1 mmol/L (3.5-5.1)
[2016-09-10 08:19] LABS: HEMATOCRIT 30.9 % (35.0-45.0); HEMOGLOBIN 9.5 gm/dL (12.0-16.0); MEAN CELL VOLUME 87.1 FL (83-96); MEAN CORPUSCULAR HEMOGLOBIN 26.8 PG (28-34); MEAN CORPUSCULAR HGB CONC 30.8 g/dL (30-36); RED BLOOD COUNT 3.54 X10e (3.90-5.30); RED CELL DISTRIBUTION WIDTH 28.2 % (11.0-15.5); WHITE BLOOD COUNT 7.9 X10e3 (4.0-10.5)
[2016-09-11 08:00] LABS: CALCIUM SERUM 8.3 mg/dL (8.4-10.2); CREATININE SERUM 0.6 mg/dL (0.6-1.4); GLOM FILT RATE Estimated 84.9 mL/min (>60); POTASSIUM 4.2 mmol/L (3.5-5.1)
[2016-09-11 10:02] LABS: INR 2.6; PROTHROMBIN TIME (PATIENT) 27.8 SECONDS (10.0-11.7)
[2016-09-11 10:03] LABS: HEMOGLOBIN 9.3 gm/dL (12.0-16.0); MEAN CELL VOLUME 87.3 FL (83-96); MEAN CORPUSCULAR HEMOGLOBIN 27.1 PG (28-34); MEAN PLATELET VOLUME 7.2 FL (6.5-11.5); RED BLOOD COUNT 3.44 X10e (3.90-5.30)
[2016-09-12 08:02] LABS: INR 2.4; PROTHROMBIN TIME (PATIENT) 25.9 SECONDS (10.0-11.7)
[2016-09-13 06:36] LABS: INR 2.4; PROTHROMBIN TIME (PATIENT) 26.1 SECONDS (10.0-11.7)
[2016-09-13 07:43] LABS: BUN/CREATININE RATIO 12.5; CALCIUM SERUM 8.4 mg/dL (8.4-10.2); CREATININE SERUM 0.4 mg/dL (0.6-1.4); MAGNESIUM 1.2 mg/dL (1.6-3.0); POTASSIUM 3.2 mmol/L (3.5-5.1)
[2016-09-14 06:19] LABS: INR 2.9; PROTHROMBIN TIME (PATIENT) 31.5 SECONDS (10.0-11.7)
[2016-09-14 06:56] LABS: CALCIUM SERUM 8.4 mg/dL (8.4-10.2); CREATININE SERUM 0.5 mg/dL (0.6-1.4); GLOM FILT RATE Estimated 90.1 mL/min (>60); MAGNESIUM 1.4 mg/dL (1.6-3.0); POTASSIUM 3.4 mmol/L (3.5-5.1)
[2016-09-14 22:19] LABS: SODIUM URINE RANDOM 75 mmol/L
[2016-09-14 22:41] LABS: OSMOLALITY,URINE 324 mOsmo/kg (250-900)
[2016-09-15 06:23] LABS: INR 2.9
[2016-09-15 06:36] LABS: CALCIUM SERUM 8.7 mg/dL (8.4-10.2); CREATININE SERUM 0.5 mg/dL (0.6-1.4); GLOM FILT RATE Estimated 90.1 mL/min (>60); MAGNESIUM 1.7 mg/dL (1.6-3.0); POTASSIUM 4.5 mmol/L (3.5-5.1)
[2016-09-15 06:49] LABS: THYROID STIMULATING HORMONE 2.6 uIU/ml (0.34-5.60)
== END 2016-09-15 15:44 | DRG 312 ==
LOC: CED 19:24 → C3A PCU 21:45 → CEDOF 21:45 → C3A PCU 21:56 → CED 21:56 → C3A PCU 09-08 00:26 → CEDOF 09-08 00:26 → C3A PCU 09-08 00:26
PROVIDERS: Emergency Medicine; Hospitalist; Internal Medicine Cardiovascular Disease; Physician Assistant Medical
PROC: B24BYZZ Ultrasonography of Heart with Aorta using Other Contrast (ICD-10-PCS; principal; 2016-09-09)
DX: I95.1 Orthostatic hypotension (principal); J96.10 Chronic respiratory failure, unspecified whether with hypoxia or hypercapnia; I48.92 Unspecified atrial flutter; R06.00 Dyspnea, unspecified; E22.2 Syndrome of inappropriate secretion of antidiuretic hormone; E83.42 Hypomagnesemia; I08.1 Rheumatic disorders of both mitral and tricuspid valves; J44.9 Chronic obstructive pulmonary disease, unspecified; N39.0 Urinary tract infection, site not specified; D64.9 Anemia, unspecified; I48.0 Paroxysmal atrial fibrillation; I73.9 Peripheral vascular disease, unspecified; G89.29 Other chronic pain; E78.5 Hyperlipidemia, unspecified; M06.9 Rheumatoid arthritis, unspecified; Z85.3 Personal history of malignant neoplasm of breast; Z85.038 Personal history of other malignant neoplasm of large intestine; G47.33 Obstructive sleep apnea (adult) (pediatric); I71.4 Abdominal aortic aneurysm, without rupture; Z90.49 Acquired absence of other specified parts of digestive tract; Z90.710 Acquired absence of both cervix and uterus; Z96.659 Presence of unspecified artificial knee joint; Z79.01 Long term (current) use of anticoagulants; I10 Essential (primary) hypertension; M19.90 Unspecified osteoarthritis, unspecified site; E87.6 Hypokalemia
CPT/HCPCS: 36415; 71020; 74176; 80048; 80061; 80076; 81003; 82274; 82533; 82550; 83036; 83735; 83880; 83935; 84300; 84443; 84484; 85025; 85027; 85610; 85730; 86850; 86900; 86901; 87086; 87186; 93005; 93306; 94760; 94761; 97110; 97116; 97162; 97165; 97530; 97535; 99285; C9113; G8978-GP; G8979-GP; G8987-GO; G8988-GO; J0696; J1940; J3475

== ENCOUNTER 2016-09-28 11:59 | Inpatient (IN) | payer MEDICARE, OTHER ==
[~2016-09-28] VITALS: Ht 170.2 cm; Wt 62.3 kg
--- NOTE | ~2016-09-28 | A ---
[facility] Nutrition Therapy DATE: 09/29/16 Patient: KAELA BALDERRAMA Physician: CORY Address: [address] Room/Bed: [address] [place] [address], Zip: [place] [address] Admit Date: 09/28/16 Date of : 34 Height: 5 7 Weight: 130 61 NUTRITIONAL ASSESSMENT: REASON: 6 nutritional risk points re: 30# weight loss Dx: SOA, Afib PMH: AMS, HLD, FTT, T2DM, Afib, colon cancer, breast cancer Anthropometrics: ht: 5'7" wt: 134# (61 kg) BMI 20 Labs: Na+ 131, Cl- 96, Glu 319, GFR 59.6 Meds: lipitor, remeron, megace, coumadin, D5%, protonix I/O & Bowel function: 1423/ no data. BM 09/28 Skin Integrity: scattered bruising; intact abrasion- RLE Estimated Nutrition Needs: Increased 2' weight loss Diet: Regular Assessment: Chart reviewed, events noted. Pt was recently assessed by RD during her previous admit in August 2016. At that time, the pt reported 5-10# weight loss and poor appetite. RD international trade specialist visited pt at bedside. Pt was very lethargic at time of visit and would not wake to verbal or physical touch, therefore is not appropriate for nutrition interview at this time. Untouched breakfast tray on bedside table observed. There is a 30# weight loss noted in [facility], no family present to confirm. The pt's RN reports that the patient is failing to thrive and will not eat, even with assistance, also stating the pt's family is considering hospice care if the pt does not improve in the next 24-48 hours. The RN believes the pt's family will not allow enteral nutrition support. During previous admission the pt was agreeable to Chocolate Ensure and Chocolate Magic Cup. Will order these supplements and follow up. Please see recommendations. RD will continue to follow. Dx: Inadequate oral intake r/t FTT, poor appetite, poor intake AEB RN report of pt intake 2) Unintentional weight loss r/t current condition, poor appetite AEB 30# weight loss reported in [facility] Intervention: 1. Regular diet 2. Supplements if desired [facility] Nutrition Therapy DATE: 09/29/16 Patient: KAELA BALDERRAMA Physician: CORY Address: [address] Room/Bed: [address] [place] [address], Zip: [place] [address] Admit Date: 09/28/16 Date of : 34 Height: 5 7 Weight: 130 61 Monitoring, Evaluation and Goals: 1. Intake; consume/tolerate >50% of all meals 2. Weight; prevent further weight loss, promote healthy weight maintenance 3. Labs; glucose Recommendations: 1. Continue regular diet. Continue to encourage PO intake. 2. Order chocolate Glucerna once daily and Magic Cup chocolate once daily to determine if the pt will consume supplements. Increase supplement frequency as needed. 3. If the pt continues to have low intake (<50% of meals), and if deemed appropriate per the pt's plan of care/ MD discretion, consult RD for enteral nutrition recommendations. RD will f/u per protocol as pt is at moderate nutritional risk. Respectfully, JUAN CALIXTO, summer intern Elen Ordoñez, RD, LD Food and Nutritional Services [facility] cc: client file
--- NOTE | ~2016-09-28 | CO ---
Unit #: [id number] #: [id number] Patient: KAELA BALDERRAMA [id number] [address] [place], [place] [address] [id number] MR#: [id number] NAME: KAELA BALDERRAMA ROOM: 558 Age: 81 Sex: F Admission Date: 09/28/2016 : 1935 Attending Physician: Kishan Tracey M.D. Primary Care Physician: Shirlene Rahman A.P.R.N. CONSULTATION REPORT REASON FOR CONSULTATION Atrial fibrillation with RVR. The patient is usually followed by Dr. Hurley at . HISTORY OF PRESENT ILLNESS This is an 81-year-old elderly female with a past medical history of permanent atrial fibrillation on anticoagulation with Coumadin, peripheral vascular disease status post stenting, diabetes mellitus, rheumatoid arthritis, chronic pain, gastroesophageal reflux disease. According to the nursing staff, the patient was admitted from [facility] secondary to decreased oral intake, weakness, increasing confusion, and decrease in oxygen saturation. For the last several days apparently she has not been eating or drinking well. In the emergency room, the patient was found to be in atrial fibrillation with RVR. She denies chest pain or shortness of breath. It is notable; however, that there is no family currently present at bedside and the patient is only able to state her name and where she is, she is very drowsy, will awaken with stimulation, but falls immediately back to sleep, and unable to give an appropriate history. All information was gathered from the chart and the nursing staff. Initial EKG shows atrial fibrillation, rate of 103 beats per minute, cannot rule out previous inferior infarct. QTC interval of 408 msec, no acute ischemic change is noted. Gastroenterology has also seen and evaluated the patient and apparently, secondary to some dysphagia issues, her anticoagulation is currently on hold, INR at this time is 2.2. PAST MEDICAL HISTORY 1. Permanent atrial fibrillation on chronic anticoagulation with Coumadin. 2. History of peripheral vascular disease with stent placement. 3. Hypertension. 4. Hyperlipidemia. 5. Diabetes mellitus. 6. Rheumatoid arthritis. 7. Chronic pain. 8. Gastroesophageal reflux disease. 9. History of breast cancer. 10. History of colon cancer, status post colostomy. Unit #: [id number] #: [id number] Patient: KAELA BALDERRAMA 11. Chronic obstructive pulmonary disease. 12. Tobacco abuse. PAST SURGICAL HISTORY 1. Positive for vascular stenting. 2. Cholecystectomy. 3. Hysterectomy. 4. Knee replacement. 5. Breast lumpectomy. ALLERGIES Pentazocine lactate, propoxyphene SOCIAL HISTORY The patient was residing at [facility], she is a reformed smoker, quit in June, denies illicit drugs or alcohol use. FAMILY HISTORY Noncontributory secondary to advanced age. REVIEW OF SYSTEMS Unable to be obtained secondary to the patient's drowsiness and inability to cooperate at this time. HOME MEDICATIONS 1. Amitriptyline 20 mg p.o. q.h.s. 2. Coumadin 1.5 mg p.o. daily 3. Multivitamin one tablet p.o. daily 4. Cardizem 30 mg p.o. q.8h 5. Folic acid 1 mg p.o. daily 6. Ipratropium albuterol mini-nebs q.4h p.r.n. 7. Meclizine 12.5 p.o. q.i.d. 8. Methotrexate 25 mg tablet eight tablets on Sundays 9. Midodrine 2.5 mg p.o. b.i.d. 10. Myrbetriq 25 mg p.o. daily 11. Nadolol 40 mg p.o. b.i.d. 12. Hydrocodone-acetaminophen 10/325 one tablet p.o. q.4h p.r.n. 13. Prednisone 20 mg p.o. daily 14. Protonix 40 mg p.o. daily 15. Remeron 15 mg p.o. q.h.s. 16. Crestor 20 mg p.o. daily 17. Zinc oxide one application topical b.i.d. 18. Zofran 4 mg p.o. q.4-6h p.r.n. nausea PHYSICAL EXAMINATION GENERAL: This is an elderly 81-year-old female, currently in no acute distress, she is resting comfortably in bed. She is sleeping but arousable. Appears confused and is only oriented times person and place. VITAL SIGNS: Temperature 97.6, respiratory rate 16, pulse 53-[id number]-fwpir, blood pressure 110/59. HEENT: Head: Atraumatic and normocephalic. Pupils are equal and round. Mucous membranes are dry. NECK: Trachea is midline. Neck is supple, no lymphadenopathy or thyromegaly. Carotid upstrokes are normal. CARDIOVASCULAR: S1 and S2 are irregularly irregular, no murmur, gallop, or rub. LUNGS: Clear to auscultation, no adventitious breath sounds, no rales, no rhonchi, no wheezes. Unit #: [id number] #: [id number] Patient: KAELA BALDERRAMA ABDOMEN: Soft, nontender, nondistended, bowel sounds are present. EXTREMITIES: The patient has diffuse generalized edema in her hands as well as her lower extremities. NEUROLOGIC: Again she is drowsy, sleeping, able to answer questions minimal is able to state her name and where she is. DIAGNOSTIC STUDIES LABORATORY: Sodium 131, potassium 3.7, chloride 96, CO2 25, BUN 15, creatinine 0.9, glucose 319, hemoglobin 9.7, hematocrit 31.1, WBCs 11.6, platelet count 257, TSH is 2.60. IMAGING: Chest x-ray shows stable cardiomegaly with an atherosclerotic tortuous aorta, but no acute pulmonary findings. CARDIOVASCULAR: EKG shows atrial fibrillation with rapid ventricular response, rate of 103 beats per minute, cannot rule out previous inferior infarct, previous anterior infarct, QTC interval is 408 msec, no acute ischemic changes noted. ASSESSMENT 1. Atrial fibrillation with rapid ventricular response on chronic anticoagulation with Eliquis. 2. Altered mental status. 3. Dysphasia. 4. Malnutrition with failure to thrive. 5. History of PVD with stents. 6. Hypertension. 7. Hyperlipidemia. 8. History of breast cancer. 9. History of colon cancer, status post resection. PLAN We have been asked to see the patient secondary to atrial fibrillation with RVR. At this time, the patient is not taking oral intake very well. Her Cardizem is on hold, will start her on loading dose of digoxin 0.25 mg IV x1 now with repeat in six hours and then 0.125 of digoxin IV daily for rate control. Her Coumadin therapy is currently on hold as gastroenterology is doing their workup. INR at present is 2.2. At this time will continue with supportive care, rate control. According to the nursing staff, if the patient does not considerably improve in the next several days they may be considering [facility] evaluation. Further recommendations to follow Dr. Golden assessment. There is no evidence of fluid overload, also note the patient does have diffuse lower extremity and generalized edema secondary to malnutrition and low albumin. Dictated by... Jasmyne Fuller/ly TD: 09/30/2016 15:00 JOB #: [id number] Unit #: [id number] #: [id number] Patient: KAELA BALDERRAMA CONSULTATION REPORT Page 1 of 1 X Rosetta Vicente JUNIOR ART DIRECTOR X CONSULTATION REPORT
--- NOTE | ~2016-09-28 | DS ---
Unit #: [id number] #: [id number] Patient: KAELA LAMAS [id number] [address] [place], [place] [address] [id number] MR#: [id number] NAME: KAELA LAMAS ROOM: 558 Age: 81 Sex: F Admission Date: 09/28/2016 : 1935 Discharge Date: 10/03/2016 Attending Physician: Kishan Tracey M.D. Primary Care Physician: Shirlene Rahman A.P.R.N. DISCHARGE SUMMARY FINAL DIAGNOSES 1. Chronic respiratory failure. 2. Atrial fibrillation. 3. Anticoagulation therapy with super therapeutic INR. 4. Hyponatremia. 5. Failure to thrive. 6. Hypertension. 7. Dysphagia. 8. Hypertension. 9. Hyperlipidemia. 10. History of peripheral vascular disease. HOSPITAL COURSE Ms. Lamas was admitted by my colleague, Dr. Tracey. Dr. Prabhakar was consulted because of dysphagia. Dr. Padilla was consulted for atrial fibrillation and elevated heart rate. Speech evaluation was done, patient choosing not to eat, stating she just cannot eat. Discussed with family at length. The family requested for Hospice care. The patient was transferred to Hospice on 10/03/2016. The patient's family was made aware of this and was requested by the family. Dictated by... Kenneth Palmer TD: 11/23/2016 07:45 JOB #: [id number] DISCHARGE SUMMARY Page 1 of 1 X Keira Jones MD X DISCHARGE SUMMARY
--- NOTE | ~2016-09-28 | CR7 ---
[facility] A Service of [facility] & [facility] RADIOLOGY TEXT RESULTS PATIENT: KAELA BALDERRAMA LOCATION: [facility] 558-01 : 34 UNIT #: [id number] AGE: [address]: Kishan Tracey MD SEX: F ORDER DR: [id number] [facility] [address] [place], [place] [address] [id number] I MR#: [id number] #: [id number] NAME: KAELA BALDERRAMA : 1935 SEX: F STUDY DATE/TIME: 09/28/2016 19:53 UNIT: C5 ROOM: [facility] STUDY DESCRIPTION: CR Abdomen Single AP View Attending Physician: Kishan Tracey M.D. Ordering Physician: Kishan Tracey M.D. Primary Care Physician: Shirlene Rahman A.P.R.N. MEDICAL IMAGING REPORT This report is preliminary unless electronic signature is present EXAM Abdomen, single view, AP. HISTORY Abdominal pain generalized, with the history of right breast and colon cancer. Symptoms have been present for 2 weeks. No injury. FINDINGS Supine view of the abdomen is reviewed. There is abdomen and pelvis CT from 09/08/2016. There is evidence of prior surgery including prior cholecystectomy and postoperative changes in the left hemipelvis. There is a left iliac region stent and there are postoperative changes to the lower lumbar spine. Atherosclerotic vascular calcifications are quite prominent and there is at least ectasia of the abdominal aorta. On review of the CT scan, there is an aneurysm documented on that exam. The plain films do not adequately follow up the aneurysm. There is arthritis at both hips. Degenerative change in the lumbar spine. There is colonic gas and stool at the level of the rectum. The bowel gas pattern is, otherwise, essentially nonspecific. Supine view does not evaluate for free air or air-fluid level. There is abnormal appearance to the left lung base. This is new from 09/08/2016, and raises concern for the presence of aspiration or pneumonia and I would recommend correlation with a chest x-ray. Two-view study at minimum. There is likely a left lower quadrant colostomy present. IMPRESSION 1. Concern for the development of left lower lobe airspace disease since the CT scan 09/08/2016. Correlation with a two view chest x-ray recommended. 2. Partial redemonstration of known abdominal aortic aneurysm. The [facility] A Service of [facility] & [facility] RADIOLOGY TEXT RESULTS PATIENT: KAELA BALDERRAMA LOCATION: [facility] : 34 UNIT #: [id number] AGE: [address]: Kishan Tracey MD SEX: F ORDER DR: plain film does not adequately follow it up. See the previous CT scan. Postoperative changes to the abdomen and pelvis. Degenerative changes to the hips. The bowel gas pattern is nonspecific. Colonic gas and stool is present to the level of the rectum. Supine view does not assess for free air or air fluid level. I believe the patient has a colostomy, left lower quadrant. STAT * RESULT Dictated by... Meme Johnson M.D. THIS IS AN ELECTRONICALLY VERIFIED REPORT Meme Johnson M.D. at 09/28/2016 10:53 PM ERIC/vernon TD: 09/28/2016 20:43 JOB #: [id number] MEDICAL IMAGING REPORT Page 1 of 1 COPY
--- NOTE | ~2016-09-28 | CR72 ---
[facility] A Service of [facility] & [facility] RADIOLOGY TEXT RESULTS PATIENT: KAELA BALDERRAMA LOCATION: [facility] 558- : 34 UNIT #: [id number] AGE: [address]: Kishan Tracey MD SEX: F ORDER DR: [id number] [facility] [address] [place], [place] [address] [id number] MR#: [id number] Acc #: [id number] NAME: KAELA BALDERRAMA : 1935 SEX: F STUDY DATE/TIME: 09/28/2016 12:25 UNIT: ZIGGY ROOM: STUDY DESCRIPTION: CR Chest Single View Portable Attending Physician: Randell Gaona M.D. Ordering Physician: Ed Doctor [id number] [facility] Primary Care Physician: Shirlene Rahman A.P.R.N. MEDICAL IMAGING REPORT This report is preliminary unless electronic signature is present EXAM Chest portable, 09/28/2016 12:25 hours HISTORY 81-year-old complaining of shortness of air with atrial fibrillation today. COMPARISON 09/08/2016 FINDINGS Portable upright chest demonstrates moderate enlargement of the cardiac silhouette similar to 09/08/2016. There is a tortuous atherosclerotic aorta. The pulmonary vascularity is normal. The lungs are clear and there are no effusions. IMPRESSION Stable cardiomegaly and tortuous atherosclerotic aorta. There are no acute pulmonary or pleural findings. Dictated by... Alejandra Garcia M.D. THIS IS AN ELECTRONICALLY VERIFIED REPORT Alejandra Garcia M.D. at 09/29/2016 9:23 AM Rafa TD: 09/28/2016 14:33 JOB #: [id number] MEDICAL IMAGING REPORT Page 1 of 1 COPY
--- NOTE | ~2016-09-28 | CO ---
Unit #: [id number] #: [id number] Patient: KAELA LAMAS [id number] [address] [address] [id number] I MR#: [id number] NAME: KAELA LAMAS ROOM: 558 Age: 81 Sex: F Admission Date: 09/28/2016 : 1935 Attending Physician: Kishan Tracey M.D. Primary Care Physician: Shirlene Rahman A.P.R.N. Consultation Date: 09/29/2016 CONSULTATION REPORT REFERRING PHYSICIAN Dr. Kishan Tracey. REASON FOR CONSULTATION Difficulty swallowing. HISTORY OF PRESENT ILLNESS Ms. Lamas is an 81-year-old pleasant lady with dementia. She came from rehab when she was noticed to have very poor intake. She has stopped eating and drinking and has been losing weight and showing failure to thrive. Patient has also been given history of choking on food. She says she will eat food and it will sit in her throat for a while. She has history of aspiration pneumonia and chronic respiratory failure. PAST MEDICAL HISTORY 1. Atrial fibrillation on Coumadin. 2. History of rheumatoid arthritis. 3. History of colon cancer in the past. 4. Status post colostomy a long time ago. 5. History of breast cancer. 6. Peripheral vascular disease. 7. Dementia. REVIEW OF SYSTEMS Negative other than as mentioned above. MEDICATIONS Medications at home included: 1. Amitriptyline. 2. Multivitamin. 3. Cardizem. 4. DuoNeb. 5. Meclizine. 6. Methotrexate. 7. Midodrine. 8. Nadolol. 9. Bath. 10. Crestor. ALLERGIES Propoxyphene, Talwin, gatifloxacin. SOCIAL HISTORY Nonsmoker. Nonalcoholic. Lives in a longterm. Unit #: [id number] #: [id number] Patient: KAELA LAMAS FAMILY HISTORY Noncontributory. PHYSICAL EXAMINATION GENERAL: Seems to be stable without any acute distress, somewhat confused. VITAL SIGNS: Blood pressure 148/87, heart rate 98, respirations 18, temperature normal. HEENT: Pupils equal and reactive. Sclerae anicteric. Oral mucosa moist. NECK: No JVD. No lymphadenopathy. CHEST: Few scattered rhonchi. CARDIOVASCULAR: Regular rate and rhythm. No murmurs. ABDOMEN: Soft, colostomy in place. No tenderness. No distention. No organomegaly or ascites. NEUROLOGIC: Grossly intact. DIAGNOSTIC STUDIES LABORATORY: Hemoglobin 9.7. INR 2.2. Otherwise unremarkable. ASSESSMENT AND PLAN 1. Patient with dysphagia, appears to be oropharyngeal, poor intake and malnutrition with significant weight loss. I will have swallow evaluation by speech therapy. If needed, consider esophagogastroduodenoscopy and percutaneous endoscopic gastrostomy tube placement if patient is agreeable afterwards. 2. Dementia. 3. Atrial fibrillation on anticoagulation. 4. History of colon cancer. Thank you, Dr. Tracey, for this interesting consult. Will follow along. Dictated by... Kenneth Brown/raina TD: 09/29/2016 15:32 JOB #: [id number] CONSULTATION REPORT Page 1 of 1 X Kp Prabhakar MD X CONSULTATION REPORT
--- NOTE | ~2016-09-28 | FU ---
[facility] Nutrition Therapy DATE: 10/03/16 Patient: KAELA BALDERRAMA Physician: CORY Address: [address] [place] [address] Room/Bed: [address] [place] [address], Zip: [place] [address] Admit Date: 09/28/16 Date of : 34 Height: 5 7 Weight: 137 62.3 NUTRITION MONITORING/FOLLOW-UP: Reason: Nutrition follow-up Admitting Dx: 81 y/o female admitted with SOA and A-fib Anthropometrics: Ht: 67", admission wt: 134 lbs, current wt: 137 lbs, BMI: 20 (normal) Labs: No new labs since 09/30 Meds: Prednisone, therapeutic formula, megace, PPI, zofran prn, pain meds, D5NS @ 75 ml/hr GI: BM 10/02 (small) Skin: Issues noted, 1+ LUE edema noted Assessment: Chart reviewed, events noted. Patient sleeping at time of RD visit to room, no family present. Patient noted to not be eating, has regular diet and ONS ordered. Maintaining weight status at this time. Patient continues to be confused. Family leaning towards inpatient hospice (vs [facility]), to meet with hospice liason today. No recent labs. No further RD interventions appropriate at this time, will remain available. Dx: 1) Inadequate oral intake r/t FTT, poor appetite AEB RN report of PO intake - ACTIVE 2) Unintented weight loss r/t clinical condition, poor appetite AEB 30 lb weight loss - ACTIVE Intervention: None at this time Monitoring, Evaluation and Goals: 1. PO intake > 50% of meals - NOT MET, MAY NOT BE RELEVANT ([facility] deciding on goals of care) 2. Maintain weight status - IN PROGRESS 3. Glucose WNL - UNMEASURED (no new labs since 09/30) No new goals Monitor: Per consult/LOS follow-up Recommendations: Diet order and oral supplement per DIP TANKER if consistent with goals of care. No further dietary interventions are appropriate at this time. Please consult dietitian with any further nutritional needs, will remain available. [facility] Nutrition Therapy DATE: 10/03/16 Patient: KAELA BALDERRAMA Physician: CORY Address: [address] [place] [address] Room/Bed: [address] [place] [address], Zip: [place] [address] Admit Date: 09/28/16 Date of : 34 Height: 5 7 Weight: 137 62.3 Status: Mild nutrition risk Respectfully, Maddy Garay RD, LD [facility] cc: client file
--- NOTE | ~2016-09-28 | EKG ---
PATIENT: KAELA BALDERRAMA UNIT #: [id number] Ventricular Rate: 103 BPM Atrial Rate: 150 BPM QRS Duration: 84 ms Q-T Interval: 312 ms QTC Calculation(Bezet): 408 ms Calculated R [place]: 1 degrees Calculated T [place]: 20 degrees Diagnosis Line: Atrial fibrillation with rapid ventricular Diagnosis Line: response Diagnosis Line: Possible Inferior infarct , age undetermined Diagnosis Line: Anterior infarct (cited on or before 28-SEP-2016) Diagnosis Line: Abnormal ECG Diagnosis Line: When compared with ECG of 09-SEP-2016 07:12, Diagnosis Line: Borderline criteria for Inferior infarct are now Diagnosis Line: Present Diagnosis Line: QT has shortened Diagnosis Line: Confirmed by YASIR BRIZUELA MD ([id number]) on Diagnosis Line: 09/29/2016 9:03:41 AM INTERPRETING MD: CHATA EVANGELISTA
--- NOTE | ~2016-09-28 | HP ---
Unit #: [id number] #: [id number] Patient: JULIANA LAMAS [id number] [facility] [address] [place], [place] [address] [id number] I MR#: [id number] NAME: JULIANA LAMAS ROOM: 558 Age: 81 Sex: F Admission Date: 09/28/2016 : 1935 Attending Physician: Kishan Tracey M.D. Primary Care Physician: Shirlene Rahman A.P.R.N. HISTORY AND PHYSICAL ADMISSION DIAGNOSES 1. Altered mental status. 2. Atrial fibrillation with the rapid ventricular response. 3. Failure to thrive. 4. Chronic respiratory failure. 5. History of peripheral vascular disease. 6. History of chronic pain. 7. Dyslipidemia. 8. History of colon cancer, status post resection with colostomy. 9. History of breast cancer. 10. History of rheumatoid arthritis. HISTORY OF PRESENT ILLNESS Mrs. Juliana Lamas is an 81-year-old female well known to us secondary to a recent hospitalization. She was discharged on September 15, 2016 when she was treated for chronic respiratory failure, UTI. She was discharged to [facility]. Apparently the last several days she started declining in the view that she refused to take anything p.o. She stopped eating, stopped drinking. She was getting ready to be discharged home today when she became extremely confused. Her O2 sats went down and she was transferred to [facility] ER. In the emergency room she was found with the afib with RVR, was started on the Cardizem drip and admitted. She is a poor historian secondary to history of underlying dementia. All the history obtained from the daughter who was present at the bedside; looks like she did not have any history of recent fever, chills, any nausea or vomiting. She denies any chest pain, denies any increasing shortness of air, denies any headache or dizziness; again no nausea, vomiting or diarrhea. REVIEW OF SYSTEMS A 12-point review of systems on this patient is negative except as above. Daughter at the bedside asking for possible hospice evaluation next few days if her condition does not drastically improve. PAST MEDICAL HISTORY Past medical history is significant for, again, history of paroxysmal afib on chronic anticoagulation with the Coumadin, history of rheumatoid arthritis, history of chronic respiratory failure, dementia, colon cancer, breast cancer, dyslipidemia, peripheral vascular disease. PAST SURGICAL HISTORY Past surgical history is significant for left lower extremity stent secondary to peripheral vascular disease, colectomy with a colostomy Unit #: [id number] #: [id number] Patient: JULIANA LAMAS secondary to colon cancer, cholecystectomy, hysterectomy, knee replacement and breast lumpectomy. HOME MEDICATIONS Home medications on this female include: 1. Amitriptyline 20 mg q.h.s. 2. Coumadin 1.5 mg daily. 3. Multivitamin daily. 4. Cardizem 30 mg t.i.d. 5. Folic acid daily. 6. DuoNeb inhaler q.4 h. 7. Meclizine 12.5 mg q.i.d. 8. Methotrexate 25 mg p.o. weekly. 9. Midodrine 2.5 mg b.i.d. 10. Nadolol 40 mg b.i.d. 11. [place] 10 one tablet q.4 h. p.r.n. 12. Protonix 40 mg daily. 13. Remeron 15 mg q.h.s. 14. Crestor 20 mg daily. 15. Zinc oxide topically. 16. Zofran p.r.n. ALLERGIES Propoxyphene, Talwin, gatifloxacin. SOCIAL HISTORY No current history of tobacco, alcohol or illicit drug use. Again, patient was recently at the [facility]. FAMILY HISTORY Unremarkable. PHYSICAL EXAMINATION GENERAL: The patient is an 81-year-old female not in acute distress, alert and awake, slightly confused, otherwise not in acute distress. VITAL SIGNS: BP 148/87, heart rate 115, respirations 18, temperature 97.6, satting 98% on a couple liters. HEENT: Head is atraumatic. Pupils equal, round and reactive to light. Extraocular muscles intact. Oropharynx clear. NECK: Neck is supple. No mass. No JVD. No bruit. RESPIRATORY: Chest is diminished bilaterally at the bases, generally clear. CARDIOVASCULAR EXAM: S1, S2. No murmurs. ABDOMEN: Abdomen is soft, tender throughout, no rebound. Bowel sounds are present. No hepatosplenomegaly. EXTREMITIES: Lower extremities without any cyanosis, clubbing or edema. NEUROLOGIC: Neurologically, again, without any focal deficits. DIAGNOSTIC STUDIES IMAGING: Chest x-ray shows stable cardiomegaly with a tortuous atherosclerotic aorta. No acute findings. LABORATORY: Labs significant for GFR of 46.7, blood glucose 232, BUN and creatinine 16 and 1.1, sodium is 128. Coagulation panel significant for INR of 2.9, PT 31.5. Hematology: White count 11.5, hemoglobin and hematocrit 9.8 and 30.8, platelets 300. ASSESSMENT AND PLAN Unit #: [id number] #: [id number] Patient: JULIANA LAMAS 1. Atrial fibrillation with rapid ventricular response: Continue Cardizem. Dr. Nicolas Golden is her preventive medicine physician who had been consulted. Admit to telemetry bed on 5B/5C, resume her home medications. Resume the anticoagulation. 2. Failure to thrive along with dehydration, elevated GFR: Will start hydration. Will start on Megace. Continue supportive care. Consider hospice evaluation per request of daughter who states that she is going to be talking it over with the patient's and make the final decision in a few days. 3. Hyponatremia: Looks like this is chronic with this patient. Again continue IV fluids. Will consider a nephrology evaluation. Dr. Veras had been following this lady previously. 4. History of chronic respiratory failure, at the baseline. Chest x-ray unremarkable. 5. History of peripheral vascular disease, status post left lower extremity stent. 6. History of chronic pain: Continue home meds. 7. History of colon cancer, status post colectomy with a colostomy with the abdominal discomfort: Will do a KUB, rule out small bowel obstruction. 8. History of breast cancer status post lumpectomy. 9. History of rheumatoid arthritis, on methotrexate. 10. Leukocytosis: Again, unremarkable chest x-ray. Will check the UA and urine culture. 11. GI and DVT prophylaxis: Continue PPI and INR is therapeutic. Dictated by Kishan Tracey M.D. OC/rima TD: 09/28/2016 19:26 JOB #: [id number] HISTORY AND PHYSICAL Page 1 of 1 X Kishan Tracey MD HISTORY AND PHYSICAL
[~2016-09-28 11:59] MED LIST changes: +COUMADIN PO; +MULTIVITAMINS1 EAC3 PO; +MYRBETRIQ25 MG PO; +REMERON15 MG PO
[2016-09-28] MEDS ORDERED: COUMADIN PO (12:14)
[2016-09-28] MEDS ORDERED: AMITRYPTYLINE PO (12:14)
[2016-09-28] MEDS ORDERED: PATIENT'S PHARMACY (12:14)
[2016-09-28] MEDS ORDERED: MULTIVITAMINS1 EAC3 PO (12:15)
[2016-09-28] MEDS ORDERED: FOLIC ACID1 MG PO (12:16)
[2016-09-28] MEDS ORDERED: CARDIZEM30 M1 PO (12:16)
[2016-09-28] MEDS ORDERED: IPRATR-ALBUTEROL3 ML NEB (12:17)
[2016-09-28] MEDS ORDERED: MECLIZINE HCL12.5 M2 PO (12:17)
[2016-09-28] MEDS ORDERED: MIDODRINE HCL2.5 MG PO (12:18)
[2016-09-28] MEDS ORDERED: METHOTREXATE2.5 MG PO (12:18)
[2016-09-28] MEDS ORDERED: CORGARD PO (12:19)
[2016-09-28] MEDS ORDERED: HYDROCODON-ACE1 EAC5 PO (12:19)
[2016-09-28] MEDS ORDERED: MYRBETRIQ25 MG PO (12:19)
[2016-09-28] MEDS ORDERED: PREDNISONE1 MG PO (12:19)
[2016-09-28] MEDS ORDERED: SECURA PROTECTI50 GM TOP (12:20)
[2016-09-28] MEDS ORDERED: REMERON15 MG PO (12:20)
[2016-09-28] MEDS ORDERED: PROTONIX PO (12:20)
[2016-09-28] MEDS ORDERED: CRESTOR PO (12:20)
[2016-09-28] MEDS ORDERED: ZOFRAN PO (12:21)
[2016-09-28 14:12] LABS: BASOPHIL% 0.1 % (0-2.5); EOSINOPHIL% 0.3 % (0.0-7.0); HEMATOCRIT 30.8 % (35.0-45.0); HEMOGLOBIN 9.8 gm/dL (12.0-16.0); LYMPHOCYTE# 0.3 X10e3 (1.0-3.5); LYMPHOCYTE% 2.7 % (17.0-45.0); MEAN CELL VOLUME 86.2 FL (83-96); MEAN CORPUSCULAR HEMOGLOBIN 27.5 PG (28-34); MEAN CORPUSCULAR HGB CONC 31.9 g/dL (30-36); MEAN PLATELET VOLUME 7.4 FL (6.5-11.5); MONOCYTE# 0.1 X10e3 (0-1.0); MONOCYTE% 1.2 % (3.0-12.0); NEUTROPHIL% 95.7 % (40-75); PLATELET COUNT 300 X10e3 (140-420); RED BLOOD COUNT 3.57 X10e (3.90-5.30); RED CELL DISTRIBUTION WIDTH 24.7 % (11.0-15.5); WHITE BLOOD COUNT 11.5 X10e3 (4.0-10.5)
[2016-09-28 14:25] LABS: DIFF IND YES
[2016-09-28 14:26] LABS: INR 2.9; PROTHROMBIN TIME (PATIENT) 31.5 SECONDS (10.0-11.7)
[2016-09-28 14:42] LABS: BUN/CREATININE RATIO 14.54; CALCIUM SERUM 8.6 mg/dL (8.4-10.2); CREATININE SERUM 1.1 mg/dL (0.6-1.4); GLOM FILT RATE Estimated 46.7 mL/min (>60); MAGNESIUM 1.7 mg/dL (1.6-3.0); POTASSIUM 4.2 mmol/L (3.5-5.1)
[2016-09-28 15:44] LABS: PLATELET ESTIMATE NORMAL (NORMAL); POIKILOCYTOSIS MOD
[2016-09-29 07:20] LABS: INR 2.2; PROTHROMBIN TIME (PATIENT) 24.2 SECONDS (10.0-11.7)
[2016-09-29 07:37] LABS: BUN/CREATININE RATIO 16.66; CALCIUM SERUM 8.5 mg/dL (8.4-10.2); CREATININE SERUM 0.9 mg/dL (0.6-1.4); GLOM FILT RATE Estimated 59.6 mL/min (>60); POTASSIUM 3.7 mmol/L (3.5-5.1)
[2016-09-29 07:43] LABS: BASOPHIL% 0.1 % (0-2.5); EOSINOPHIL# 0.1 X10e3 (0-0.7); EOSINOPHIL% 0.6 % (0.0-7.0); HEMATOCRIT 31.1 % (35.0-45.0); HEMOGLOBIN 9.7 gm/dL (12.0-16.0); LYMPHOCYTE# 0.3 X10e3 (1.0-3.5); LYMPHOCYTE% 2.7 % (17.0-45.0); MEAN CELL VOLUME 86.4 FL (83-96); MEAN CORPUSCULAR HEMOGLOBIN 26.9 PG (28-34); MEAN CORPUSCULAR HGB CONC 31.2 g/dL (30-36); MEAN PLATELET VOLUME 7.3 FL (6.5-11.5); MONOCYTE# 0.3 X10e3 (0-1.0); MONOCYTE% 2.2 % (3.0-12.0); NEUTROPHIL# 10.9 X10e3 (1.5-7.1); NEUTROPHIL% 94.4 % (40-75); PLATELET COUNT 257 X10e3 (140-420); RED CELL DISTRIBUTION WIDTH 25.5 % (11.0-15.5); WHITE BLOOD COUNT 11.6 X10e3 (4.0-10.5)
[2016-09-29 07:45] LABS: DIFF IND NO
[2016-09-30 03:39] LABS: URINE APPEARANCE CLEAR; URINE BLOOD TRACE (NEG); URINE COLOR DK YELLOW; URINE GLUCOSE >1000 MG/DL (NEG); URINE KETONE NEG (NEG); URINE LEUKOCYTE ESTERASE TRACE (NEG); URINE NITRATE NEG (NEG); URINE PH 5.5 (5-8); URINE PROTEIN 3+ (NEG); URINE SPECIFIC GRAVITY 1.034 (1.003-1.035)
[2016-09-30 03:42] LABS: CULTURE INDICATED? YES; URINE BACTERIA AUWI NEG (NEGATIVE); URINE SQUAMOUS EPITHELIAL CELL OCC /[HPF]
[2016-09-30 03:44] LABS: URINE BILIRUBIN NEG (NEG)
[2016-09-30 03:52] LABS: URINE GRANULAR CAST 0-2 /[HPF]; URINE MUCUS PRESENT
[2016-09-30 06:06] LABS: HEMATOCRIT 29.2 % (35.0-45.0); HEMOGLOBIN 9.1 gm/dL (12.0-16.0); MEAN CELL VOLUME 86.6 FL (83-96); MEAN CORPUSCULAR HGB CONC 31.1 g/dL (30-36); MEAN PLATELET VOLUME 7.8 FL (6.5-11.5); RED BLOOD COUNT 3.37 X10e (3.90-5.30); RED CELL DISTRIBUTION WIDTH 25.5 % (11.0-15.5)
[2016-09-30 06:13] LABS: WHITE BLOOD COUNT 17.6 X10e3 (4.0-10.5)
[2016-09-30 06:54] LABS: ALBUMIN SERUM 1.4 g/dL (3.5-5.0); BILIRUBIN,TOTAL 1.1 mg/dL (0.2-2.0); CALCIUM SERUM 8.2 mg/dL (8.4-10.2); CREATININE SERUM 0.8 mg/dL (0.6-1.4); DIGOXIN (LANOXIN) 0.9 ng/ml (1.0-2.0); GLOM FILT RATE Estimated 68.7 mL/min (>60); POTASSIUM 3.5 mmol/L (3.5-5.1); PROTEIN TOTAL SERUM 5.8 g/dL (6.0-8.3)
[2016-09-30 09:55] LABS: INR 3.4
[2016-09-30 09:56] LABS: PROTHROMBIN TIME (PATIENT) 37.3 SECONDS (10.0-11.7)
[2016-10-01 11:46] LABS: INR 4.3; PROTHROMBIN TIME (PATIENT) 47.2 SECONDS (10.0-11.7)
[2016-10-02 15:20] LABS: HEMATOCRIT 31.2 % (35.0-45.0); HEMOGLOBIN 9.2 gm/dL (12.0-16.0)
[2016-10-03 08:06] LABS: HEMATOCRIT 31.9 % (35.0-45.0); HEMOGLOBIN 10.3 gm/dL (12.0-16.0); MEAN CELL VOLUME 87.4 FL (83-96); MEAN CORPUSCULAR HEMOGLOBIN 28.3 PG (28-34); MEAN CORPUSCULAR HGB CONC 32.4 g/dL (30-36); MEAN PLATELET VOLUME 8.4 FL (6.5-11.5); RED BLOOD COUNT 3.65 X10e (3.90-5.30); RED CELL DISTRIBUTION WIDTH 26.1 % (11.0-15.5); WHITE BLOOD COUNT 10.9 X10e3 (4.0-10.5)
[2016-10-03 11:33] LABS: PROTHROMBIN TIME (PATIENT) 65.3 SECONDS (10.0-11.7)
== END 2016-10-03 18:36 | DRG 308 ==
LOC: CED 11:59 → CEDOF 16:35 → CED 17:24 → C5B 17:35 → CEDOF 17:35 → C5B 10-03 18:36
PROVIDERS: Emergency Medicine; Hospitalist; Internal Medicine; Physician Assistant Medical
PROC: 05H533Z Insertion of Infusion Device into Right Subclavian Vein, Percutaneous Approach (ICD-10-PCS; principal; 2016-09-29)
PROC: B546ZZA Ultrasonography of Right Subclavian Vein, Guidance (ICD-10-PCS; 2016-09-29)
DX: I48.2 Chronic atrial fibrillation (principal); G92 Toxic encephalopathy; E46 Unspecified protein-calorie malnutrition; J96.10 Chronic respiratory failure, unspecified whether with hypoxia or hypercapnia; R13.12 Dysphagia, oropharyngeal phase; E87.1 Hypo-osmolality and hyponatremia; E86.0 Dehydration; J44.9 Chronic obstructive pulmonary disease, unspecified; R62.7 Adult failure to thrive; G89.29 Other chronic pain; Z85.038 Personal history of other malignant neoplasm of large intestine; Z85.3 Personal history of malignant neoplasm of breast; M06.9 Rheumatoid arthritis, unspecified; D72.829 Elevated white blood cell count, unspecified; Z79.01 Long term (current) use of anticoagulants; I73.9 Peripheral vascular disease, unspecified; K21.9 Gastro-esophageal reflux disease without esophagitis; F17.210 Nicotine dependence, cigarettes, uncomplicated; Z90.49 Acquired absence of other specified parts of digestive tract; Z90.710 Acquired absence of both cervix and uterus; Z96.659 Presence of unspecified artificial knee joint; F03.90 Unspecified dementia, unspecified severity, without behavioral disturbance, psychotic disturbance, mood disturbance, and anxiety; Z51.5 Encounter for palliative care; Z68.20 Body mass index [BMI] 20.0-20.9, adult
CPT/HCPCS: 36415; 71010; 74000; 80048; 80053; 80162; 81003; 82947; 83735; 83880; 85014; 85018; 85025; 85027; 85610; 85730; 87086; 92610; 93005; 94640; 94760; 96361; 96374; 99285; G8996-GN; G8997-GN; G8998-GN; J1160; J2060; J2270; J2405; J3430; J8610